=== PATIENT | female | born 1990 | race Caucasian/White ===

== ENCOUNTER 2017-10-27 19:31 | Emergency (ER) | payer MEDICAID ==
[~2017-10-27] VITALS: Ht 167.6 cm; Wt 148.0 kg
[2017-10-28 01:23] VITALS: BP 137/76
== END 2017-10-28 01:45 | disposition home or self-care (01) ==
LOC: ER 19:46
DX: M79.632 Pain in left forearm (principal); M25.522 Pain in left elbow
CPT/HCPCS: 73080; 73090; 81025; 99284; A4565

== ENCOUNTER 2019-07-25 11:50 | Observation (INO) | payer MEDICAID ==
[~2019-07-25] VITALS: Ht 162.6 cm; Wt 126.6 kg
[2019-07-25 13:18] LABS: CLARITY URINE CLOUDY (CLEAR); COLOR URINE DARK YELLOW (YELLOW); KETONES URINE TRACE (NEGATIVE); LEUKOCYTE ESTERASE URINE 1+ (NEGATIVE); NITRITE URINE NEGATIVE (NEGATIVE); OCCULT BLOOD URINE NEGATIVE (NEGATIVE); PROTEIN URINE TRACE (NEGATIVE); SPECIFIC GRAVITY URINE 1.026 (1.005-1.030)
[2019-07-25] MEDS ORDERED: CEFAZOLIN 2,000 MG in DEXT 5% WATER 100 ML IV SCH (14:30)
[2019-07-25] MEDS ORDERED: PNV1TABL76 MT (18:04)
== END 2019-07-25 16:00 | disposition home or self-care (01) ==
LOC: 8 EST LDRP 11:50
PROVIDERS: ADMIT Obstetrics & Gynecology; ATTEND Obstetrics & Gynecology
DX: O26.893 Other specified pregnancy related conditions, third trimester (principal); R10.9 Unspecified abdominal pain; Z3A.30 30 weeks gestation of pregnancy
CPT/HCPCS: 81003; 96365; 99281; G0378; J0690; J7060; 96360

== ENCOUNTER 2019-09-19 17:56 | Observation (INO) | payer MEDICAID ==
[~2019-09-19] VITALS: Ht 162.6 cm; Wt 154.2 kg
[~2019-09-19 17:56] MED LIST: PNV1TABL76 MT
[2019-09-19] MEDS ORDERED: DEXT 5%/LACTATED RINGERS 1,000 ML IV SCH (21:00)
== END 2019-09-19 22:20 | disposition home or self-care (01) ==
LOC: 8 EST LDRP 17:56
PROVIDERS: ADMIT Obstetrics & Gynecology; ATTEND Obstetrics & Gynecology
DX: O42.92 Full-term premature rupture of membranes, unspecified as to length of time between rupture and onset of labor (principal); O26.893 Other specified pregnancy related conditions, third trimester; R10.9 Unspecified abdominal pain; M54.9 Dorsalgia, unspecified; Z3A.38 38 weeks gestation of pregnancy
CPT/HCPCS: 76805; 76818; 99281; G0378